=== PATIENT | male | born 1995 | race Caucasian/White ===

== ENCOUNTER → 2017-07-03 | Outpatient (CLI) | payer SELFPAY ==
[2017-07-03 20:01] LABS: CHLAM PCR NOT DETECTED (NOT DETECT); GON PCR NOT DETECTED (NOT DETECT)
[2017-07-06 17:36] LABS: HSV I DNA Positive (Negative)
[2017-07-07 09:12] LABS: HSV II DNA Negative (Negative)
== END ==
LOC: LAB 18:20
PROVIDERS: ATTEND Nurse Practitioner Acute Care
DX: Z20.2 Contact with and (suspected) exposure to infections with a predominantly sexual mode of transmission (principal); N48.9 Disorder of penis, unspecified
CPT/HCPCS: 36415; 87491; 87529; 87591